=== PATIENT | female | born 1965 | race Caucasian/White ===

== ENCOUNTER 2022-08-05 04:15 | Emergency (ER) | payer MEDICAID ==
[~2022-08-05] VITALS: Ht 144.8 cm; Wt 52.6 kg
--- NOTE | 2022-08-05 04:23 | NUR ---
PT TAKEN TO BED 2
[2022-08-05 04:25] VITALS: BP 132/74
--- NOTE | 2022-08-05 04:30 | NUR ---
PT AMBULATORY FROM HOME; STATES SHE HAD RECENT TOOTH EXTRACTION AND WAS EXPERIENCING PAIN; REPORTS TAKING UNPRESCRIBED AMOXICILLIN SHE HAD AT HOME AND WOKE UP WITH HER BOTTOM LIP AND CHIN SWOLLEN. NO RESPIRATORY DISTRESS NOTED. BREATHING ADEQUATELY ON RA.
--- NOTE | 2022-08-05 04:40 | NUR ---
Dr. Ayala examining patient.
[2022-08-05] MEDS ORDERED: diphenhydrAMINE 50 MG/ML VIAL IVP ONE (04:45)
[2022-08-05] MEDS ORDERED: FAMOTIDINE 20 MG/2 ML VIAL IVP ONE (04:45)
[2022-08-05] MEDS ORDERED: methylPREDNISolone SS 125 MG/2 ML VIAL IVP ONE (04:45)
--- NOTE | 2022-08-05 04:45 | NUR ---
Pt medicated as ordered via IVP; Tolerated well.
[2022-08-05] MEDS ORDERED: EPIN1KIT31 IM (04:50)
[2022-08-05] MEDS ORDERED: CLIN300C52 PO (04:50)
[2022-08-05] MEDS ORDERED: FAMO-90 PO (04:50)
[2022-08-05] MEDS ORDERED: DIPH25TA53 PO (04:50)
[2022-08-05] MEDS ORDERED: PRED20TA5 PO (04:50)
[2022-08-05] MEDS ORDERED: LIDOCAINE 2% 1000 MG/50 ML VIAL INJ ONE (05:50)
[2022-08-05] MEDS ORDERED: AMPICILLIN/SULBACTAM 3 GM VIAL IM ONE (06:05)
[2022-08-05] MEDS ORDERED: NACL 0.9% 1,000 ML IV ONE (06:05)
[2022-08-05] MEDS ORDERED: IBUP-1842 PO (06:20)
[2022-08-05] MEDS ORDERED: AMOX-1230 PO (06:20)
[2022-08-05] MEDS ORDERED: AMPICILLIN/SULBACTAM 3 GM in NACL 0.9% 100 ML IV ONE (06:40)
[2022-08-05 06:41] LABS: BASOPHILS % (AUTO) 0.3 % (0.0-2.0); EOSINOPHILS % (AUTO) 0.3 % (0.0-4.0); HEMATOCRIT 37.2 % (36-48); HEMOGLOBIN 12.6 g/dL (12.0-16.0); LYMPHOCYTES # (AUTO) 0.9 K/uL (2.5-16.5); LYMPHOCYTES % (AUTO) 6.3 % (20.5-51.1); MEAN CORPUSCULAR HEMOGLOBIN 31 pg (27-31); MEAN CORPUSCULAR HGB CONC 34 g/dL (33-37); MEAN CORPUSCULAR VOLUME 91.8 fL (80-94); MONOCYTES # (AUTO) 0.5 K/uL (0.8-1.0); MONOCYTES % (AUTO) 3.1 % (1.7-9.3); NEUTROPHILS # (AUTO) 13.1 K/uL (1.8-7.7); PLATELET COUNT (AUTO) 237 K/uL (140-450); RED BLOOD CELL COUNT(AUTO) 4.05 MIL/uL (4.20-5.40); RED CELL DISTRIBUTION WIDTH 13.8 % (11.6-13.7); WHITE BLOOD COUNT (AUTO) 14.5 K/uL (4.8-10.8)
--- NOTE | 2022-08-05 06:48 | NUR ---
Dr. Nuñez examining patient.
[2022-08-05 07:11] LABS: ALBUMIN 3.8 g/dL (3.4-5.0); ANION GAP 12.6 (8-16); CARBON DIOXIDE 27.1 mmol/L (21-32); CREATININE 0.6 mg/dL (0.6-1.3); POTASSIUM 3.7 mmol/L (3.5-5.1); TOTAL BILIRUBIN 0.7 mg/dL (0.0-1.0)
--- NOTE | 2022-08-05 07:21 | NUR ---
REPORT FR EDD VILLAUNEVA, TRANSFER OF CARE , ALL QUESTIONS WERE ANSWERED
--- NOTE | 2022-08-05 08:47 | NUR ---
NO PAIN, ETILL WAITING FOR CT
--- NOTE | 2022-08-05 09:34 | NUR ---
AT TO DISCUSS TEST RESULTS AND DCI
[2022-08-05 09:35] VITALS: BP 119/69
--- NOTE | 2022-08-05 09:38 | NUR ---
Patient discharged with v/s stable. Written and verbal after care instructions given and explained. Patient alert, oriented and verbalized understanding of instructions. Ambulatory with to home. All questions addressed prior to discharge. ID band removed. Patient advised to follow up with PMD. Rx of AMOX, MOTRIN given. Patient educated on indication of medication including possible reaction and side effects. Opportunity to ask questions provided and answered.
== END 2022-08-05 09:37 | disposition home or self-care (01) ==
LOC: MED 04:15
DX: K04.7 Periapical abscess without sinus (principal); Z79.899 Other long term (current) drug therapy
CPT/HCPCS: 36415; 41008; 70487; 80053; 83605; 85025; 87040; 90471; 90715; 96365; 96375; 99285; J0295; J1200; J2001; J2930; J3490; J7030; Q9967